=== PATIENT | male | born 1965 | race Caucasian/White ===

== ENCOUNTER 2019-03-06 16:55 | Emergency (ER) | payer MEDICAID ==
[~2019-03-06] VITALS: Ht 180.3 cm; Wt 83.9 kg
[2019-03-06 17:16] VITALS: BP 145/105
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
--- NOTE | 2019-03-06 19:19 | NUR ---
Patient discharged to home in stable condition. Written and verbal after care instructions given. Patient verbalizes understanding of instruction. Pt ambulatory with a steady gait
== END 2019-03-06 19:20 | disposition home or self-care (01) ==
LOC: ER 16:58
DX: H10.89 Other conjunctivitis (principal)